=== PATIENT | female | born 1950 | race Caucasian/White ===

== ENCOUNTER 2023-07-06 14:59 | Emergency (ER) | payer OTHER ==
[~2023-07-06] VITALS: Ht 172.7 cm; Wt 95.3 kg
[2023-07-06 15:04] VITALS: BP 148/94; PULSE 98; RESP 18; TEMP 97.8; O2SAT 97
[2023-07-06] MEDS ORDERED: KETOROLAC 60 MG/2 ML VIAL IM ONE (15:35)
[2023-07-06] MEDS ORDERED: MORPHINE SULFATE 4 MG/ML SYR IM ONE (16:50)
[2023-07-06] MEDS ORDERED: ACET-8905 PO (17:49)
[2023-07-06] MEDS ORDERED: IBUP-2213 PO (17:49)
== END 2023-07-06 17:55 | disposition home or self-care (01) ==
LOC: MED 14:59
DX: S62.631A Displaced fracture of distal phalanx of left index finger, initial encounter for closed fracture (principal); S20.212A Contusion of left front wall of thorax, initial encounter; E11.9 Type 2 diabetes mellitus without complications; I10 Essential (primary) hypertension; Z79.4 Long term (current) use of insulin; Z79.899 Other long term (current) drug therapy; W18.30XA Fall on same level, unspecified, initial encounter; Y93.89 Activity, other specified; Y92.89 Other specified places as the place of occurrence of the external cause; Y99.8 Other external cause status
CPT/HCPCS: 29130; 71101; 73140; 96372; 99284; J1885; J2270